=== PATIENT | male | born 1985 ===

== ENCOUNTER 2017-07-06 18:02 | Emergency (ER) | payer OTHER ==
[2017-07-06 18:21] VITALS: BP 128/73; PULSE 96; RESP 16; TEMP 98.7; O2SAT 98
--- NOTE | 2017-07-06 19:33 | ED PDOC ---
HPI: Back Time Seen by Provider: 07/06/17 18:57 Chief Complaint (Nursing): Back Pain Chief Complaint (Provider): Back Pain History Per: Patient History/Exam Limitations: no limitations Onset/Duration Of Symptoms: Days (x2) Current Symptoms Are (Timing): Still Present Additional Complaint(s): Patient is a 32 year old male who presents to the ER complaining of right lower back pain, onset upon waking up yesterday morning. Denies any injury or fall. 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 Took Advil at 8AM today with slight improvement. Pain worsens with movement. He denies any chest pain, shortness of breath, fever, abdominal pain, nausea, vomiting, incontinence, or saddle anesthesia. Patient is not driving home. No prior history of back problems. PMD: None Past Medical History Reviewed: Historical Data, Nursing Documentation, Vital Signs Vital Signs: Last Vital Signs Temp 98.7 F 07/06/17 18:20 Pulse 96 H 07/06/17 18:20 Resp 16 07/06/17 18:20 BP 128/73 07/06/17 18:20 Pulse Ox 98 07/06/17 18:20 - Medical History PMH: No Chronic Diseases - Surgical History Surgical History: No Surg Hx - Family History Family History: States: Unknown Family Hx - Social History Current smoker - smoking cessation education provided: No Alcohol: None Drugs: Denies - Home Medications Home Medications: Ambulatory Orders Medication Instructions Recorded Cyclobenzaprine [Cyclobenzaprine 10 mg PO TID PRN #12 tab 07/06/17 HCl] Naproxen 500 mg PO BID #20 tab 07/06/17 - Allergies Allergies/Adverse Reactions: Allergies Allergy/AdvReac Type Severity Reaction Status Date / Time No Known Allergies Allergy Verified 07/06/17 18:22 Review of Systems ROS Statement: Except As Marked, All Systems Reviewed And Found Negative Constitutional: Negative for: Fever Cardiovascular: Negative for: Chest Pain Respiratory: Negative for: Shortness of Breath Gastrointestinal: Negative for: Nausea, Vomiting, Abdominal Pain Genitourinary Male: Negative for: Incontinence Musculoskeletal: Positive for: Back Pain Neurological: Negative for: Numbness Physical Exam - Reviewed Nursing Documentation Reviewed: Yes Vital Signs Reviewed: Yes - Physical Exam Appears: Positive for: Well, Non-toxic, No Acute Distress Head Exam: Positive for: ATRAUMATIC, NORMAL INSPECTION, NORMOCEPHALIC Skin: Positive for: Normal Color, Warm, Dry Eye Exam: Positive for: EOMI, Normal appearance, PERRL Neck: Positive for: Normal, Painless ROM, Supple Cardiovascular/Chest: Positive for: Regular Rate, Rhythm. Negative for: Murmur Respiratory: Positive for: Normal Breath Sounds. Negative for: Accessory Muscle Use, Respiratory Distress Gastrointestinal/Abdominal: Positive for: Normal Exam, Soft. Negative for: Tenderness, Distended Back: Positive for: Muscle Spasm (right paralumbar), Other (Right paralumbar tenderness. No sciatic notch tenderness). Negative for: L CVA Tenderness, R CVA Tenderness, Vertebral Tenderness Extremity: Positive for: Normal ROM, Other (moving all extremities, ambulating with steady gait). Negative for: Deformity Neurologic/Psych: Positive for: Alert, Oriented (x3). Negative for: Motor/ Sensory Deficits - ECG O2 Sat by Pulse Oximetry: 98 (RA) Pulse Ox Interpretation: Normal Medical Decision Making Medical Decision Making: Clinical Impression: Acute back pain, muscle spasm Time: 19:23 Plan: --Tramadol 50 mg PO --Toradol 60 mg IM --Flexeril 10 mg PO --Reevaluation 21:06 On reevaluation, patient is feeling better and medically stable for discharge home. Provided with rx for cyclobenzaprine and naproxen. Counseling was provided and all questions were answered regarding diagnosis and need for follow up with the clinic. There is agreement to discharge plan. Return if symptoms persist or worsen. Scribe Attestation: Documented by Santa Ruano, acting as a scribe for Leann Mary PA-C Provider Scribe Attestation: All medical record entries made by the Scribe were at my direction and personally dictated by me. I have reviewed the chart and agree that the record accurately reflects my personal performance of the history, physical exam, medical decision making, and the department course for this patient. I have also personally directed, reviewed, and agree with the discharge instructions and disposition. Disposition - Clinical Impression Clinical Impression: Lower back pain, Acute back pain, Back strain, Spasm of muscle of lower back - Patient ED Disposition Is Patient to be Admitted: No Counseled Patient/Family Regarding: Diagnosis, Need For Followup, Rx Given - Disposition [facility]errals: [facility] [Outside] Disposition: Routine/Home Disposition Time: 21:06 Condition: IMPROVED Prescriptions: Cyclobenzaprine [Cyclobenzaprine HCl] 10 mg PO TID PRN #12 tab PRN Reason: spasm Naproxen 500 mg PO BID #20 tab Instructions: Muscle Strain, Low Back Pain in Adults, Low Back Pain (DC), Muscle Spasms (DC) Forms: [facility] (Taiwanese) Print Language: BERMUDIAN - POA Present On Arrival: None
== END 2017-07-06 21:32 | disposition home or self-care (01) ==
LOC: H.ER 18:02
DX: M54.5 Low back pain (principal)
CPT/HCPCS: 96372; 99282; J1885